=== PATIENT | female | born 1965 | race Two or more races ===

== ENCOUNTER 2018-05-01 05:30 | Day surgery (SDC) | payer OTHER ==
[2018-04-29 17:18] LABS: BASOPHILS 0.3 % (0-2); EOSINOPHILS 1.5 % (0-7); HEMATOCRIT 36.7 % (36.0-48.0); HEMOGLOBIN 12.6 g/dL (12-16); IMMATURE GRANULOCYTES 0.1 % (0-5); LYMPHOCYTES 28.8 % (15-50); MCH 29.6 pg (26.0-34.0); MCHC 34.3 g/dL (31.0-37.0); MCV 86.4 fL (80.0-100.0); MEAN PLATELET VOLUME 9.2 fL (7.4-10.4); MONOCYTES 5.8 % (2-11); NEUTROPHILS 63.5 % (40-80); PLATELET COUNT 283 10x3/uL (130-400); RBC 4.25 10x6/uL (4.00-5.40); RDW 12.9 % (11.5-14.5); WBC 7.2 10x3/uL (4.8-10.8)
[~2018-05-01] VITALS: Ht 160 cm; Wt 60.8 kg
--- NOTE | ~2018-05-01 | OP ---
PATIENT NAME: MAHENDRA MARIA MEDICAL RECORD: [id number] :63 LOCATION:D.OPS ADMISSION DATE: SURGEON: EDEL GOTTI MD DATE OF OPERATION: 05/01/2018 PREOPERATIVE DIAGNOSES: 1. Postcoital bleeding. 2. Endocervical polyp. POSTOPERATIVE DIAGNOSES: 1. Postcoital bleeding. 2. Endocervical polyp. PROCEDURE: Hysteroscopy and cervical polypectomy. SURGEON: Edel Gotti MD ESTIMATED BLOOD LOSS: Minimal. INTRAVENOUS FLUIDS: Per anesthesia record. HYSTEROSCOPIC FLUID LOSS: Approximately 150 cc of 0.9 normal saline. FINDINGS: 1. Grossly normal-appearing endometrial cavity. Bilateral ostia identified. 2. Posterior 1 cm endocervical polyp identified. SPECIMENS: Portion of endocervical polyp. COMPLICATIONS: None apparent. PROCEDURE: The patient was taken to the operating room where general anesthesia was achieved without difficulty. The patient was prepped and draped in normal sterile fashion in the dorsal lithotomy position in the [facility]. Following prep and drape, the bladder was drained of approximately 100 cc of straw colored urine, a Graves speculum was placed in the vagina and the anterior lip of the cervix was grasped with a single tooth tenaculum. The patient was dilated to approximately 6 mm, at which point, the hysteroscope was introduced. Survey of the endometrium was performed and followed by the endocervix. Hysteroscopic scissors were then used to excise the base of a posterior endocervical polyp approximately 2 cm from the external cervical os. This was removed piecemeal using the polyp forceps and hysteroscopic forceps. Good hemostasis was noted from the surgical site. The tenaculum was removed. The patient tolerated procedure well, transferred to postanesthesia recovery stable without incident. TRANSINT:[id number] Voice Confirmation ID: [id number] DOCUMENT ID: [id number] OPERATIVE REPORT [id number] MAHENDRA MARIA EDEL GOTTI MD CC: [id number] DICTATION DATE: 05/01/18832 BELT PRESS OPERATOR: 05/01/18839 [facility] [address] [place] [address]
[~2018-05-01 05:30] MED LIST: AMITRIPTYLINE H50 MG PO; ASPIRIN EC81 M1 PO; BENICAR20 MG PO; BUPROPION XL300 MG PO; LAMICTAL200 M1 PO; PREMPHASE 0.621 EACH PO; TRINTELLIX5 MG PO; XANAX0.5 MG PO
[2018-05-01] MEDS ORDERED: RESTORIL15 MG PO (06:27)
[2018-05-01] MEDS ORDERED: SYMBICORT 80-10.2 GM INH (06:28)
[2018-05-01] MEDS ORDERED: ALBUTEROL SULF8.5 GM INH (06:31)
[2018-05-01 06:37] VITALS: BP 113/68; Ht 160 cm; Wt 60.8 kg
[2018-05-01 06:56] LABS: HCG URINE NEGATIVE (NEGATIVE)
--- NOTE | 2018-05-01 09:15 | NUR ---
REC'D FROM RECOVERY. FL TRAY BROUGHT TO PT. NO FAMILY AT BEDSIDE.
--- NOTE | 2018-05-01 09:45 | NUR ---
TOLERATED FL TRAY. NO URGE TO VOID. CALLED SURGERY AND THEY WILL TELL DR SIERRA THAT PATIENT IS REQUESTING TO TALK WITH HIM.
--- NOTE | 2018-05-01 10:18 | NUR ---
DR SIERRA HERE AND TALKING WITH PATIENT,
--- NOTE | 2018-05-01 10:27 | NUR ---
PT UP TO BATHROOM.
--- NOTE | 2018-05-01 10:40 | NUR ---
BACK TO BED. VOIDED WITHOUT DIFFICULTY. IV DC'D WITH CATHETER INTACT. WRITTEN AND VERBAL DC INST. GIVEN TO PT ALONG WITH RX. VERBALIZED UNDERSTANDING.
--- NOTE | 2018-05-01 10:57 | NUR ---
DC'D HOME WITH FRIEND VIA PRIVATE VEHICLE. TAKEN TO VEHICLE VIA WC. STABLE ST TIME OF DC.
== END 2018-05-01 10:57 | disposition home or self-care (01) ==
LOC: D.OPS 05:30 → D.PAN 07:30 → D.OPS 08:50
PROVIDERS: ATTEND Obstetrics & Gynecology
DX: N93.0 Postcoital and contact bleeding (principal); N84.1 Polyp of cervix uteri; J45.909 Unspecified asthma, uncomplicated; F32.9 Major depressive disorder, single episode, unspecified; F41.9 Anxiety disorder, unspecified; G47.00 Insomnia, unspecified; G25.81 Restless legs syndrome; I10 Essential (primary) hypertension; Z79.890 Hormone replacement therapy; Z79.82 Long term (current) use of aspirin; Z79.899 Other long term (current) drug therapy; Z88.8 Allergy status to other drugs, medicaments and biological substances